=== PATIENT | male | born 1985 | race Caucasian/White ===

== ENCOUNTER 2019-11-03 08:53 | Inpatient (IN) | payer OTHER ==
[2019-11-03] MEDS ORDERED: FOLIC ACID INJ 1 MG, THIAMINE INJ 100 MG, MAGNESIUM SULFATE 2 GM, MULTIVITAMIN 10 ML in... IV STA ×5 (09:23)
[2019-11-03] MEDS ORDERED: LORazepam 2 MG/ML VIAL IVP STA (09:23)
[2019-11-03] MEDS ORDERED: DEXAMETHASONE 10 MG/ML VIAL IVP STA (09:24)
--- NOTE | 2019-11-03 09:26 | ED Physician Documentation ---
History of Present Illness - Stated complaint Stated Complaint: LEGS SWELLING - Chief complaint Chief Complaint: General - History obtained from History obtained from: Patient - History of Present Illness Timing: How many weeks ago (6) - Additonal information Additional information: 34-year-old alcoholic male who admits to drinking 1/2 gallon of whiskey every o ther day.He has not seen a physician in over 10 years. He has previously been treated for hypertension. 2 days ago he decided to quit drinking. He has developed the shakes and elevated blood pressure. He has a rapid heart rate and feels poorly. He is noted some swelling to his ankles bilaterally and this is become concerning to him he is coming to the emergency department for evaluation. He states that he has had some kind of a upper respiratory issue for the past 6 weeks with some shortness of breath and cough. He indicates that he drinks daily heavily and he has prior experience with alcohol withdrawal usually just with the shakes. He denies any prior withdrawal seizure. He has not been without alcohol in the past year. Review of Systems Constitutional: reports: Myalgias, Fatigue. denies: Fever, Chills Eyes: denies: Decreased vision Ears: denies: Ear pain Nose: reports: Congestion. denies: Rhinorrhea / runny nose Throat: denies: Sore throat Cardiac: reports: Pedal edema. denies: Chest pain / pressure, Palpitations Respiratory: reports: Dyspnea, Cough GI: reports: Abdominal Pain, Nausea. denies: Vomiting : denies: Dysuria, Frequency PD PAST MEDICAL HISTORY - Allergies Allergies/Adverse Reactions: Allergies Allergy/AdvReac Type Severity Reaction Status Date / Time Penicillins Allergy Anaphylaxis Verified 11/03/19 09:43 PD ED PE NORMAL - Vitals Vital signs reviewed: Yes (Tachycardic and hypertensive marked.) - General General: Alert and oriented X 3, Well developed/nourished, Other (34-year-old male with shaking and trembling. He is answering questions appropriately. He has no alcohol on his breath.) - HEENT HEENT: Atraumatic, PERRL, EOMI - Neck Neck: Supple, no meningeal sign, No bony TTP - Cardiac Cardiac: No murmur, Other (Tachycardic to 130) - Respiratory Respiratory: No respiratory distress, Clear bilaterally - Abdomen Abdomen: Normal bowel sounds, Soft, Non tender, Non distended, No organomegaly - Back Back: No CVA TTP, No spinal TTP - Derm Derm: Normal color, Warm and dry, No rash - Extremities Extremities: No deformity, No edema, Other (There is trace edema bilaterally to the lower extremities.This is symmetric and pitting.) - Neuro Neuro: Alert and oriented X 3, 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, No motor deficit, No sensory deficit, Normal speech Eye Opening: Spontaneous Motor: Obeys Commands Verbal: Oriented GCS Score: 15 - Psych Psych: Normal mood, Normal affect Results - Vitals Vitals: Vital Signs - 24 hr 11/03/19 11/03/19 11/03/19 09:05 10:11 12:43 Temperature 36.8 C 37.1 C Heart Rate 130 H 117 H 124 H Respiratory 18 22 24 Rate Blood Pressure 158/111 H 147/96 H 163/99 H O2 Saturation 99 95 96 Oxygen O2 Source Room air - EKG (time done) 0928 Rate: Rate (enter#) (125) Rhythm: LAE Intervals: Prolonged QT, LBBB Compare to prior EKG: Old EKG unavailable Computer interpretation: Agree with computer - Labs Labs: Laboratory Tests 11/03/19 11/03/19 11/03/19 09:30 09:30 09:30 WBC 9.2 RBC 4.10 L Hgb 13.6 L Hct 39.8 L MCV 97.1 H MCH 33.2 H MCHC 34.2 RDW 13.2 Plt Count 247 MPV 10.1 Neut # (Auto) 6.9 H Lymph # (Auto) 1.1 L [place] # (Auto) 1.1 H Eos # (Auto) 0.1 Baso # (Auto) 0.1 Absolute Nucleated RBC 0.00 Nucleated RBC % 0.0 PT 16.0 H INR 1.4 H Sodium 131 L Potassium 3.3 L Chloride 93 L Carbon Dioxide 22 Anion Gap 16.0 H BUN 8 Creatinine 0.7 Estimated GFR (MDRD) 128 Glucose 100 Lactic Acid Calcium 8.2 L Total Bilirubin 3.2 H AST 155 H ALT 158 H Alkaline Phosphatase 201 H Total Creatine Kinase 505 H CK-MB (CK-2) Troponin I High Sens B-Natriuretic Peptide Total Protein 7.8 Albumin 3.3 Globulin 4.5 H Albumin/Globulin Ratio 0.7 L Lipase 35 Urine Color Urine Clarity Urine pH Ur Specific [place] Urine Protein Urine Glucose (UA) Urine Ketones Urine Occult Blood Urine Nitrite Urine Bilirubin Urine Urobilinogen Ur Leukocyte Esterase Urine RBC Urine WBC Ur Squamous Epith Cells Urine Bacteria Ur Microscopic Review Urine Culture Comments Urine Opiates Screen Ur Oxycodone Screen Urine Methadone Screen Ur Propoxyphene Screen Ur Barbiturates Screen Ur Tricyclics Screen Ur Phencyclidine Scrn Ur Amphetamine Screen U Methamphetamines Scrn U Benzodiazepines Scrn Urine Cocaine Screen U Cannabinoids Screen Ethyl Alcohol < 5.0 11/03/19 11/03/19 11/03/19 09:30 09:30 09:30 WBC RBC Hgb Hct MCV MCH MCHC RDW Plt Count MPV Neut # (Auto) Lymph # (Auto) [place] # (Auto) Eos # (Auto) Baso # (Auto) Absolute Nucleated RBC Nucleated RBC % PT INR Sodium Potassium Chloride Carbon Dioxide Anion Gap BUN Creatinine Estimated GFR (MDRD) Glucose Lactic Acid Calcium Total Bilirubin AST ALT Alkaline Phosphatase Total Creatine Kinase CK-MB (CK-2) 14.2 H Troponin I High Sens 74.8 H* B-Natriuretic Peptide 1726 H Total Protein Albumin Globulin Albumin/Globulin Ratio Lipase Urine Color Urine Clarity Urine pH Ur Specific [place] Urine Protein Urine Glucose (UA) Urine Ketones Urine Occult Blood Urine Nitrite Urine Bilirubin Urine Urobilinogen Ur Leukocyte Esterase Urine RBC Urine WBC Ur Squamous Epith Cells Urine Bacteria Ur Microscopic Review Urine Culture Comments Urine Opiates Screen Ur Oxycodone Screen Urine Methadone Screen Ur Propoxyphene Screen Ur Barbiturates Screen Ur Tricyclics Screen Ur Phencyclidine Scrn Ur Amphetamine Screen U Methamphetamines Scrn U Benzodiazepines Scrn Urine Cocaine Screen U Cannabinoids Screen Ethyl Alcohol 11/03/19 11/03/19 11/03/19 09:50 10:47 11:30 WBC RBC Hgb Hct MCV MCH MCHC RDW Plt Count MPV Neut # (Auto) Lymph # (Auto) [place] # (Auto) Eos # (Auto) Baso # (Auto) Absolute Nucleated RBC Nucleated RBC % PT INR Sodium Potassium Chloride Carbon Dioxide Anion Gap BUN Creatinine Estimated GFR (MDRD) Glucose Lactic Acid 1.3 Calcium Total Bilirubin AST ALT Alkaline Phosphatase Total Creatine Kinase CK-MB (CK-2) Troponin I High Sens 81.5 H* B-Natriuretic Peptide Total Protein Albumin Globulin Albumin/Globulin Ratio Lipase Urine Color DARK YELLOW Urine Clarity CLEAR Urine pH 6.0 Ur Specific [place] 1.010 Urine Protein 100 H Urine Glucose (UA) NEGATIVE Urine Ketones 15 H Urine Occult Blood MODERATE H Urine Nitrite NEGATIVE Urine Bilirubin NEGATIVE Urine Urobilinogen >=8.0 H Ur Leukocyte Esterase NEGATIVE Urine RBC 0-5 Urine WBC 0-3 Ur Squamous Epith Cells RARE Squamous Urine Bacteria Rare Ur Microscopic Review INDICATED Urine Culture Comments NOT INDICATED Urine Opiates Screen NEGATIVE Ur Oxycodone Screen NEGATIVE Urine Methadone Screen NEGATIVE Ur Propoxyphene Screen NEGATIVE Ur Barbiturates Screen NEGATIVE Ur Tricyclics Screen NEGATIVE Ur Phencyclidine Scrn NEGATIVE Ur Amphetamine Screen NEGATIVE U Methamphetamines Scrn NEGATIVE U Benzodiazepines Scrn NEGATIVE Urine Cocaine Screen NEGATIVE U Cannabinoids Screen NEGATIVE Ethyl Alcohol - Rads (name of study) chest Radiology: Prelim report reviewed (Impression: 1. Moderate cardiomegaly. 2 Bilateral interstitial pulmonary opacities could reflect pulmonary edema.), EMP read indepedently, See rad report Procedures - IVC sono (time) 0920 Bedside IVC sono: IVC measures (cm) ( 2.41), IVC collapsed c insp (cm) (2.01), High CVP PD MEDICAL DECISION MAKING - ED course Complexity details: reviewed results, re-evaluated patient, considered differential, d/w patient ED course: 34-year-old male with no prior history has a significant alcohol history and is in withdrawal now with marked elevation in his blood pressure and pulse and evidence of fluid retention presumed secondary to untreated hypertension/withdrawal. He is administered IV ativan as well as a banana bag and decadron. On my evaluation the patient has cardiomegaly, pulmonary edema, and elevated BNP consistent with acute failure. He has a mildly elevated troponin. He has elevation in all of his liver functions bilirubin is 3.2 INR is mildly elevated. He will need treatment for withdrawal from alcohol and acute congestive heart failure. He is treated here in the emergency department with a banana bag followed by Lasix. Departure - Departure Disposition: 66 [facility] DC/Xfer Clinical Impression: Alcoholic hepatitis Qualifiers: Ascites presence: unspecified Qualified Code(s): K70.10 - Alcoholic hepatitis without ascites Congestive heart failure Qualifiers: Heart failure type: unspecified Heart failure chronicity: acute Qualified Code(s): I50.9 - Heart failure, unspecified Alcohol withdrawal Qualifiers: Complication of substance-induced condition: uncomplicated Qualified Code(s): F10.230 - Alcohol dependence with withdrawal, uncomplicated Condition: Stable
[2019-11-03] MEDS ORDERED: THIAMINE 100 MG/1 ML 2 ML MDV ONE (09:35)
[2019-11-03 09:43] LABS: BASOPHILS # (AUTO) 0.1 10^3/uL (0.0-0.1); BASOPHILS % (AUTO) 0.6 %; EOSINOPHILS # (AUTO) 0.1 10^3/uL (0.0-0.7); EOSINOPHILS % (AUTO) 0.5 %; HGB - HEMOGLOBIN 13.6 g/dL (14.0-18.0); LYMPHOCYTES # (AUTO) 1.1 10^3/uL (1.5-3.5); LYMPHOCYTES % (AUTO) 11.7 %; MEAN CORPUSCULAR HEMOGLOBIN 33.2 pg (27.0-31.0); MEAN CORPUSCULAR HGB CONC 34.2 g/dL (32.0-36.0); MEAN CORPUSCULAR VOLUME 97.1 fL (80.0-94.0); MEAN PLATELET VOLUME 10.1 fL (7.4-11.4); MONOCYTES # (AUTO) 1.1 10^3/uL (0.0-1.0); MONOCYTES % (AUTO) 12.1 %; NEUTROPHILS # (AUTO) 6.9 10^3/uL (1.5-6.6); NEUTROPHILS % (AUTO) 74.6 %; PLT - PLATELET COUNT 247 10^3/uL (130-450); RED CELL DISTRIBUTION WIDTH 13.2 % (12.0-15.0); WHITE BLOOD COUNT 9.2 x10^3/uL (4.8-10.8)
[2019-11-03 09:49] LABS: INR 1.4 (0.8-1.2)
[2019-11-03 10:00] LABS: ALBUMIN 3.3 g/dL (3.2-5.5); ALBUMIN/GLOBULIN RATIO 0.7 (1.0-2.2); ALKALINE PHOSPHATASE 201 IU/L (42-121); ALT ALANINE AMINOTRANSFERASE 158 IU/L (10-60); AST ASPARTATE AMINOTRANSFERASE 155 IU/L (10-42); BILIRUBIN,TOTAL 3.2 mg/dL (0.2-1.0); BUN - BLOOD UREA NITROGEN 8 mg/dL (6-20); CALCIUM 8.2 mg/dL (8.5-10.3); CARBON DIOXIDE - CO2 22 mmol/L (21-32); CHLORIDE 93 mmol/L (101-111); CK- CREATINE KINASE 505 IU/L (22-269); CREATININE 0.7 mg/dL (0.6-1.2); GFR - MDRD 128 (>89); GLUCOSE 100 mg/dL (70-100); LIPASE 35 U/L (22-51); SODIUM 131 mmol/L (135-145); TOTAL PROTEIN 7.8 g/dL (6.7-8.2)
--- NOTE | 2019-11-03 10:09 | XRAY Report ---
Reason: chest pain Procedure Date: 11/03/2019 Accession Number: [id number] / [id number] Procedure: XR - Chest 1 View X-Ray CPT Code: 12150 Final Report FULL RESULT: EXAM: CHEST RADIOGRAPHY EXAM DATE: 11/03/2019 09:43 AM. CLINICAL HISTORY: Chest pain. COMPARISON: None. TECHNIQUE: 1 view. FINDINGS: Lungs/Pleura: Interstitial pulmonary opacities could reflect pulmonary edema. No dense focal consolidation. No evidence for pleural effusion or pneumothorax. Mediastinum: Moderate Cardiomegaly noted. Other: None. IMPRESSION: 1. Moderate cardiomegaly. 2. Bilateral interstitial pulmonary opacities could reflect pulmonary edema. RADIA
[2019-11-03] MEDS ORDERED: FUROSEMIDE 40 MG/4 ML VIAL IVP STA (10:20)
[2019-11-03 11:03] LABS: MUDS CUTOFF CONCENTRATIONS CUTOFF CONC BELOW:
[2019-11-03 11:07] LABS: GLUCOSE, URINE (UA) NEGATIVE (NEGATIVE); KETONES,URINE (UA) 15 mg/dL (NEGATIVE); LEUKOCYTE ESTERASE, URINE NEGATIVE (NEGATIVE); NITRITE,URINE NEGATIVE (NEGATIVE); OCCULT BLOOD,URINE MODERATE (NEGATIVE); PROTEIN,URINE 100 mg/dL (NEGATIVE); UROBILINOGEN,URINE >=8.0 E.U./dL (NORMAL)
[2019-11-03 11:20] LABS: AMPHETAMINE SCREEN,URINE NEGATIVE (NEGATIVE); BENZODIAZEPINES SCREEN, URINE NEGATIVE (NEGATIVE); BILIRUBIN,URINE NEGATIVE (NEGATIVE); CLARITY,URINE CLEAR (CLEAR); COCAINE SCREEN URINE NEGATIVE (NEGATIVE); ICTOTEST,URINE NEGATIVE; METHADONE SCREEN, URINE NEGATIVE (NEGATIVE); METHAMPHETAMINES SCREEN, URINE NEGATIVE (NEGATIVE); OPIATE SCREEN, URINE NEGATIVE (NEGATIVE); OXYCODONE SCREEN, URINE NEGATIVE (NEGATIVE); PROPOXYPHENE SCREEN, URINE NEGATIVE (NEGATIVE); TRICYCLIC ANTIDEPRESSANT,URINE NEGATIVE (NEGATIVE)
[2019-11-03 11:36] LABS: BACTERIA,URINE Rare /HPF (None Seen); RBC,URINE 0-5 /HPF (0-5); SQUAMOUS EPITHELIAL CELL,UR RARE Squamous (<= Few)
[2019-11-03] MEDS ORDERED: oxyCODONE 5 MG TABLET PO PRN (13:51)
[2019-11-03] MEDS ORDERED: ONDANSETRON 4 MG/2 ML VIAL IVP PRN (13:51)
[2019-11-03] MEDS ORDERED: ONDANSETRON ODT 4 MG TABLET TL PRN (13:51)
[2019-11-03] MEDS ORDERED: LORazepam 2 MG/ML VIAL IVP PRN (13:55)
[2019-11-03] MEDS ORDERED: MAGNESIUM SULFATE 2 GRAM 2 GM/50 ML BAG IV ONE ×2 (13:55→16:00)
[2019-11-03 14:33] LABS: INR 1.4 (0.8-1.2); PT - PROTHROMBIN TIME 15.8 secs (9.9-12.6)
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
[2019-11-03] MEDS: SODIUM CHLORIDE FLUSH 0.9% 10 ML SYRINGE IVP SCH (16:36)
[2019-11-03] MEDS ORDERED: POTASSIUM CHLORIDE 20 MEQ TABLET PO ONE (19:24)
[2019-11-03] MEDS: SPIRONOLACTONE 25 MG TABLET PO SCH (19:37)
[2019-11-03] MEDS: FUROSEMIDE 40 MG/4 ML VIAL IVP SCH (19:37)
[2019-11-03] MEDS: METOPROLOL SUCCINATE 50 MG TABLET PO SCH (19:37)
[2019-11-03] MEDS ORDERED: ZOLPIDEM 5 MG TABLET PO PRN (22:35)
[2019-11-03] MEDS: LORazepam 2 MG/ML VIAL IVP SCH (22:52)
[2019-11-03] MEDS: NICOTINE 14 MG PATCH TOP SCH (22:52)
[2019-11-04] MEDS: SODIUM CHLORIDE FLUSH 0.9% 10 ML SYRINGE IVP SCH ×4 (00:59→23:59)
[2019-11-04] MEDS: SODIUM CHLORIDE FLUSH 0.9% 10 ML SYRINGE IVP PRN ×3 (03:03→13:47)
[2019-11-04] MEDS: LORazepam 2 MG/ML VIAL IVP SCH ×3 (03:03→11:17)
[2019-11-04 05:37] LABS: HGB - HEMOGLOBIN 13.3 g/dL (14.0-18.0); LYMPHOCYTES # (AUTO) 0.6 10^3/uL (1.5-3.5); LYMPHOCYTES % (AUTO) 9.2 %; MEAN CORPUSCULAR HEMOGLOBIN 31.7 pg (27.0-31.0); MEAN CORPUSCULAR HGB CONC 32.7 g/dL (32.0-36.0); MEAN CORPUSCULAR VOLUME 97.1 fL (80.0-94.0); MEAN PLATELET VOLUME 9.9 fL (7.4-11.4); MONOCYTES # (AUTO) 0.5 10^3/uL (0.0-1.0); MONOCYTES % (AUTO) 8.2 %; NEUTROPHILS # (AUTO) 5.1 10^3/uL (1.5-6.6); NEUTROPHILS % (AUTO) 81.8 %; PLT - PLATELET COUNT 227 10^3/uL (130-450); RED BLOOD COUNT 4.19 10^6/uL (4.70-6.10); RED CELL DISTRIBUTION WIDTH 13.3 % (12.0-15.0); WHITE BLOOD COUNT 6.2 x10^3/uL (4.8-10.8)
[2019-11-04 05:52] LABS: ALBUMIN 2.4 g/dL (3.2-5.5); ALBUMIN/GLOBULIN RATIO 0.6 (1.0-2.2); CALCIUM 7.8 mg/dL (8.5-10.3); CREATININE 0.7 mg/dL (0.6-1.2); MAGNESIUM 1.8 mg/dL (1.7-2.8); TOTAL PROTEIN 6.1 g/dL (6.7-8.2)
[2019-11-04] MEDS: FUROSEMIDE 40 MG/4 ML VIAL IVP SCH ×2 (06:35→13:47)
[2019-11-04 07:20] LABS: HB2 TOTAL 13.6 g/dL; HEMOGLOBIN A1C 0.48 g/dL; HEMOGLOBIN A1C % 5.4 % (4.6-6.2)
--- NOTE | 2019-11-04 08:25 | Ultrasound Report ---
Reason: abnml lft and bun/creat Procedure Date: 11/04/2019 Accession Number: [id number] / [id number] Procedure: US - Abdomen Complete CPT Code: Final Report FULL RESULT: EXAM: ABDOMEN ULTRASOUND EXAM DATE: 11/04/2019 07:50 AM. CLINICAL HISTORY: Abdominal pain, abnormal liver function testing. COMPARISON: None. TECHNIQUE: Real-time scanning was performed with static images obtained. FINDINGS: Liver: Nodular hepatic contour. No focal hepatic lesions are seen. Main portal vein flow: Hepatopetal. Gallbladder: There are no stones. There is some focal fundal gallbladder wall thickening. There is ring down artifact from cholesterol polyp within the anterior gallbladder wall. Biliary System: Common bile duct measures 4 mm. No intrahepatic or extrahepatic ductal dilatation. Pancreas: The pancreas is not well seen. Kidneys: Right: 12.8 cm longitudinally. No contour-deforming mass, stones, or hydronephrosis. Left: 12.0 cm longitudinally. No contour-deforming mass, stones, or hydronephrosis. Spleen: 11.7 cm. Normal in size and echotexture. Aorta and Inferior Vena Cava: Unremarkable. Other: There is small ascites. IMPRESSION: 1. Nodular hepatic contour. Small ascites. Findings are suspicious for cirrhosis and sequela of portal hypertension. 2. No focal hepatic lesions are seen. 3. There is mild thickening of the gallbladder wall. There is ring-down artifact within the anterior gallbladder wall. Differential considerations for the wall thickening include adenomyomatosis and/or edema secondary to underlying liver disease. There is no sonographic evidence of cholecystitis. 4. There is no intra-or extrahepatic bile duct dilatation. 5. The kidneys demonstrate no shadowing stones or hydronephrosis. RADIA
[2019-11-04] MEDS ORDERED: MULTIVITAMIN 10 ML, THIAMINE INJ 100 MG, FOLIC ACID INJ 1 MG in SODIUM CHLORIDE 0.9% 1,... IV SCH (09:00)
[2019-11-04] MEDS: METOPROLOL SUCCINATE 50 MG TABLET PO SCH ×2 (09:44→17:04)
[2019-11-04] MEDS: THIAMINE 100 MG TABLET PO SCH (09:44)
[2019-11-04] MEDS: FOLIC ACID 1 MG TABLET PO SCH (09:44)
[2019-11-04] MEDS: SPIRONOLACTONE 25 MG TABLET PO SCH ×2 (09:45→17:05)
[2019-11-04] MEDS: MULTIVITAMIN TABLET PO SCH (09:45)
[2019-11-04] MEDS: lisinopriL 5 MG TABLET PO SCH (09:45)
[2019-11-04] MEDS: NICOTINE 14 MG PATCH TOP SCH (09:47)
[2019-11-04] MEDS: polyethylene glycoL 3350 17 GM PACKET PO SCH (09:49)
--- NOTE | 2019-11-04 10:03 | PHARMACY PROGRESS NOTE ---
- Best Possible Medication History Admit Date and Time: 11/03/19 6964 Processed by: Pharmacy Medication History completed: Yes Patient Interview: Completed (Patient reports he is no medications at home, does not have a PCP, has not seen provider for almost a decade; External med hx report was run to see any history of rx fill outpatient, yielded no medication fill hx; no documented PCP on file) Secondary Source(s): Insurance records As the person ultimately responsible for medication therapy, providers are able to order a medication from an existing home medication list in [facility] via the "Reconcile Routine" prior to Confirmation of that medication by system support administrator. Such practice is discouraged except when the physician, in their clinical judgment, deems that a medical need exists for a medication without regard to previous use.
[2019-11-04] MEDS ORDERED: LORazepam 1 MG TABLET PO PRN (11:43)
[2019-11-04] MEDS: PANTOPRAZOLE 40 MG TABLET PO SCH ×2 (13:47→20:27)
--- NOTE | 2019-11-04 16:24 | PROVIDER PROGRESS NOTE ---
Subjective - Prog Note Date Prog Note Date: 11/04/19 Prog Note Time: 16:22 - Subjective Pt reports feeling: Improved Subjective: Felipe has no new symptoms and has had a resolution of his shortness of breath. He was found ambulating in the halls when a friend was visiting. He continues with a dry cough. He has tolerated his meals today. He has been provided with several teaching packets on new medications, CHFrEF and was introduced to the idea of outpatient cardiac rehab, which he states he will have to think about. He admits to good social support at home, as several of his family members and friends are worried about him. He feels comfortable telling them about his medical condition. Current Medications - Current Medications Current Medications: Active Medications: Folic Acid 1 mg PO DAILY [place] Furosemide (Lasix Inj 40 Mg Vial) 40 mg IVP BIDDIURETIC [place] Lisinopril (Zestril) 5 mg PO DAILY [place] Lorazepam (Ativan Inj (Vial)) 2 mg IVP Q30M PRN; Protocol Lorazepam (Ativan) 2 mg PO Q4H PRN Metoprolol Succinate (Toprol Xl) 75 mg PO BIDWM [place] Multivitamins (Theragran) 1 tab PO DAILYWM [place] Nicotine (Nicoderm) 1 patch TOP DAILY [place] Ondansetron HCl (Zofran Inj) 4 mg IVP Q6HR PRN Ondansetron HCl (Zofran) 4 mg TL Q6HR PRN Oxycodone HCl (Roxicodone) 5 mg PO Q4HR PRN Pantoprazole Sodium (Protonix) 40 mg PO BID [place] Polyethylene Glycol (Miralax) 17 gm PO DAILY [place] Spironolactone (Aldactone) 25 mg PO BIDWM [place] Thiamine HCl (Vitamin B-1) 100 mg PO DAILY [place] Zolpidem Tartrate (Ambien) 5 mg PO QPM PRN No Known Home Medications 11/04/19 Objective - Vital Signs/Intake & Output Reviewed Vital Signs: Yes Vital Signs: Vital Signs x48h Temp Pulse Resp BP Pulse Ox 11/04/19 15:57 36.8 C 102 H 20 126/66 99 11/04/19 11:11 36.5 C 113 H 20 128/80 100 Intake & Output: Intake & Output 11/01/19 11/02/19 11/03/19 11/04/19 23:59 23:59 23:59 23:59 Intake Total 1605.2 790 Output Total 0970 4200 Balance -764.8 -3410 - Objective General Appearance: positive: No acute distress, Alert Eyes Bilateral: positive: No lid inflammation, No scleral icterus (resolved since admission) Eyes: OU Conjunctivae pale ENT: positive: Pharyngeal erythema, Dry mucous membranes, Other (poor dentitian to lower teeth Flushed facial features) Neck: positive: No JVD, Trachea midline Respiratory: positive: Chest non-tender, No respiratory distress, Breath sounds nml, Other (diminished bilaterally, no crackles or wheezing) Cardiovascular: positive: Regular rate & rhythm, Tachycardia, JVD present (slight), Systolic murmur, Diastolic murmur, Gallop/S3, Decreased pulse(s) Peripheral Pulses: 1+ Radial (R), 1+ Radial (L) Abdomen: positive: Non-tender, Nml bowel sounds, Hepatomegaly Back: positive: Nml inspection Skin: positive: No rash, Warm, Dry, Other (evidence of poor circulation to per iphery, sluggish capillary refill) Extremities: positive: Non-tender, Full ROM, Pedal edema, Joint swelling, Other (BLE pitting edema, +1) Neurologic/Psychiatric: positive: Oriented x3, CN's nml (2-12), Motor nml, Sensation nml, Mood/affect nml Reflexes: Bicep (R): 3+, Bicep (L): 3+ - Lab Results Fish Bones: 11/04/19 05:10 11/04/19 05:10 Other Labs: Lab Results x24hrs 11/04/19 11/04/19 11/04/19 Range/Units 05:10 05:10 05:10 WBC (4.8-10.8) x10^3/uL RBC (4.70-6.10) 10^6/uL Hgb (14.0-18.0) g/dL Hct (42.0-52.0) % MCV (80.0-94.0) fL MCH (27.0-31.0) pg MCHC (32.0-36.0) g/dL RDW (12.0-15.0) % Plt Count (130-450) 10^3/uL MPV (7.4-11.4) fL Neut # (Auto) (1.5-6.6) 10^3/uL Lymph # (Auto) (1.5-3.5) 10^3/uL [place] # (Auto) (0.0-1.0) 10^3/uL Eos # (Auto) (0.0-0.7) 10^3/uL Baso # (Auto) (0.0-0.1) 10^3/uL Absolute Nucleated RBC x10^3/uL Nucleated RBC % /100WBC Sodium (135-145) mmol/L Potassium (3.5-5.0) mmol/L Chloride (101-111) mmol/L Carbon Dioxide (21-32) mmol/L Anion Gap (6-13) BUN (6-20) mg/dL Creatinine (0.6-1.2) mg/dL Estimated GFR (MDRD) (>89) Glucose (70-100) mg/dL Glycated Hemoglobin 5.4 (4.6-6.2) % Estim Average Glucose 108 H (70-100) Calcium (8.5-10.3) mg/dL Phosphorus (2.5-4.6) mg/dL Magnesium (1.7-2.8) mg/dL Total Bilirubin (0.2-1.0) mg/dL GGT (8-55) IU/L AST (10-42) IU/L ALT (10-60) IU/L Alkaline Phosphatase (42-121) IU/L Total Creatine Kinase (22-269) IU/L CK-MB (CK-2) 6.1 (0.6-6.3) ng/mL Total Protein (6.7-8.2) g/dL Albumin (3.2-5.5) g/dL Globulin (2.1-4.2) g/dL Albumin/Globulin Ratio (1.0-2.2) TSH 1.19 (0.34-5.60) uIU/mL 11/04/19 11/04/19 Range/Units 05:10 05:10 WBC 6.2 (4.8-10.8) x10^3/uL RBC 4.19 L (4.70-6.10) 10^6/uL Hgb 13.3 L (14.0-18.0) g/dL Hct 40.7 L (42.0-52.0) % MCV 97.1 H (80.0-94.0) fL MCH 31.7 H (27.0-31.0) pg MCHC 32.7 (32.0-36.0) g/dL RDW 13.3 (12.0-15.0) % Plt Count 227 (130-450) 10^3/uL MPV 9.9 (7.4-11.4) fL Neut # (Auto) 5.1 (1.5-6.6) 10^3/uL Lymph # (Auto) 0.6 L (1.5-3.5) 10^3/uL [place] # (Auto) 0.5 (0.0-1.0) 10^3/uL Eos # (Auto) 0.0 (0.0-0.7) 10^3/uL Baso # (Auto) 0.0 (0.0-0.1) 10^3/uL Absolute Nucleated RBC 0.00 x10^3/uL Nucleated RBC % 0.0 /100WBC Sodium 134 L (135-145) mmol/L Potassium 3.8 (3.5-5.0) mmol/L Chloride 95 L (101-111) mmol/L Carbon Dioxide 26 (21-32) mmol/L Anion Gap 13.0 (6-13) BUN 10 (6-20) mg/dL Creatinine 0.7 (0.6-1.2) mg/dL Estimated GFR (MDRD) 128 (>89) Glucose 115 H (70-100) mg/dL Glycated Hemoglobin (4.6-6.2) % Estim Average Glucose (70-100) Calcium 7.8 L (8.5-10.3) mg/dL Phosphorus 3.0 (2.5-4.6) mg/dL Magnesium 1.8 (1.7-2.8) mg/dL Total Bilirubin 2.0 H (0.2-1.0) mg/dL GGT 260 H (8-55) IU/L AST 74 H (10-42) IU/L ALT 94 H (10-60) IU/L Alkaline Phosphatase 145 H (42-121) IU/L Total Creatine Kinase 234 (22-269) IU/L CK-MB (CK-2) (0.6-6.3) ng/mL Total Protein 6.1 L (6.7-8.2) g/dL Albumin 2.4 L (3.2-5.5) g/dL Globulin 3.7 (2.1-4.2) g/dL Albumin/Globulin Ratio 0.6 L (1.0-2.2) TSH (0.34-5.60) uIU/mL - Diagnostic Imaging Diagnostic Imaging Results: positive: Final report reviewed Diagnostic Imaging Comments: EXAM: ABDOMEN ULTRASOUND 11/04/2019 07:50 AM IMPRESSION: 1. Nodular hepatic contour. Small ascites. Findings are suspicious for cirrhosis and sequela of portal hypertension. 2. No focal hepatic lesions are seen. 3. There is mild thickening of the gallbladder wall. There is ring-down artifact within the anterior gallbladder wall. Differential considerations for the wall thickening include adenomyomatosis and/or edema secondary to underlying liver disease. There is no sonographic evidence of cholecystitis. 4. There is no intra-or extrahepatic bile duct dilatation. 5. The kidneys demonstrate no shadowing stones or hydronephrosis. ABX Reporting Has patient been on IV antibiotics over the past 48 hours?: No Assessment/Plan - Problem List (1) Alcohol withdrawal Impression: -Last drink of whiskey was on Thursday night (11/01/2019) -Symptoms on admit include, HTN, tachycardia, tremors, nausea, diaphoresis, and anxiety -Last attempt at quitting was about 1 year ago, no seizures -Social work consult -[facility] nurse scoring today from 1-4 -Continues on scheduled Lorazepam Q4H -Starting Librium in the AM to continue at home -[facility] protocol, echocardiogram, telemetry, monitor and treat symptoms Alcoholic cardiomyopathy -Echo shows severely global hypokinesis, reduced EF of 25-30% Acute combined systolic (congestive) and diastolic (congestive) heart failure -Echo shows severe global hypokinesis, reduced EF of 25-30%, severely dilated LA -Pulmonary HTN, RVSP at rest of 56 mmHg -Lifelong alcoholism is the cause -Shortness of breath with activity is nearly resolved -Ongoing fatigue, orthopnea, BLE pitting edema, enlarged abdominal girth, S3 gallop, +murmur -Continues on medical guided therapy of metoprolol, Lisinopril, spironolactone, and IV lasix Elevated LFTs -total bilirubin 3.2, now down to 2.0 -AST 155, now down to 74 -ALT 158, now down to 94 -Alk phos 201, now down to 145 -Total CK & CK-MB both have normalized -Slight yellowing of bilateral sclera has resolved -Sparkling eyes today -No jaundice -Strict cessation of alcohol use is strongly recommended Liver cirrhosis -US of the abdomen today showed nodular hepatic contour, small ascites, suspicious for cirrhosis and sequela of portal hypertension; no focal hepatic lesions are seen -Enlarged abdominal girth, lack of recent medical care -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 -Continue spironolactone, treat heart failure, encourage cessation Resting tremor -Noted on exam, patient states he does not notice this on his usual days -Patient denies baseline tremors, on his daily routine -Likely a consequence of not using alcohol -Treat symptoms; continue with CIWA protocol per nursing Medical non-compliance -Known HTN, patient admitted to not picking up antihypertensives -No PCP, substance abuse, psych diagnoses -Recommend cessation and intensive I/P treatment after this acute phase of WD Alcoholism, chronic -Primarily drinks hard liquor of whiskey -Admits to at least 1/2 gallon every 1-2 days -Elevated GGT of 260 confirms recent, heavy drinking -States that he feels that he is a "functional alcoholic as he does not drink upon waking up in the morning, and also does not drink throughout the day -Both his mother and father have been alcoholics, father has already at age 47 from complications of his alcohol abuse -Today, the patient admits to forming a habit of drinking and denies using drinking as a coping mechanism -Highly recommend intensive inpatient dual diagnosis treatment I/P center after this hospital stay -Social work has already seen the patient and we thank them for their assistance with this endeavor Social withdrawal -Patient notes that he does not do well in large groups -Initially, he has refused any treatment centers due to his social difficulties -Presented cardiac rehab today, but patient states he will have to think about this Essential hypertension -Blood pressures today have improved; 126/66, heart rates 100-110s -Continues on medical guided HFrEF therapy with metoprolol, ELIZABETH, spironolactone, and IV Lasix -Beta yfn adjusted from 50 mg to 75 mg BID today for continued tachycardia -Continue telemetry, monitor VS, adjust medications as appropriate Anxiety and depression -No regular psychotherapist per patient, no prescribed antidepressants -Continues on scheduled Lorazepam PO to keep tremors controlled and prevent full withdrawal from alcohol -Recommend ongoing counseling/treatment after this hospital stay to ensure alcohol cessation -Starting on Librium in the AM, stopping Lorazepam as well PTSD (post-traumatic stress disorder) -Patient notes childhood trauma related to growing up in a home with alcoholics as parents -Today, he claims, everyone in [place] has had abuse growing up -Consequently has social anxiety, isolation, and claims, "I am a private person" as his rationale for not needing further treatment for his alcohol use Tobacco dependence -Patient admits to vaping nicotine several times daily -Nicotine patch while inpatient, patient is thankful - No attempts have been made to leave the hospital today Insomnia -Patient admits to detention issues with his sleep, which is common in those with substance abuse disorders -Patient has been told that his long alcohol use may have contributed to his drinking -Offer Ambien at [facility]:
[2019-11-05 06:20] LABS: BASOPHILS % (AUTO) 0.4 %; EOSINOPHILS # (AUTO) 0.1 10^3/uL (0.0-0.7); EOSINOPHILS % (AUTO) 0.6 %; HGB - HEMOGLOBIN 13.7 g/dL (14.0-18.0); LYMPHOCYTES # (AUTO) 2.3 10^3/uL (1.5-3.5); LYMPHOCYTES % (AUTO) 22.5 %; MEAN CORPUSCULAR HEMOGLOBIN 31.9 pg (27.0-31.0); MEAN CORPUSCULAR HGB CONC 31.7 g/dL (32.0-36.0); MEAN CORPUSCULAR VOLUME 100.7 fL (80.0-94.0); MEAN PLATELET VOLUME 9.8 fL (7.4-11.4); MONOCYTES # (AUTO) 0.9 10^3/uL (0.0-1.0); MONOCYTES % (AUTO) 9.4 %; NEUTROPHILS # (AUTO) 6.6 10^3/uL (1.5-6.6); NEUTROPHILS % (AUTO) 66.4 %; PLT - PLATELET COUNT 276 10^3/uL (130-450); RED BLOOD COUNT 4.29 10^6/uL (4.70-6.10); RED CELL DISTRIBUTION WIDTH 13.7 % (12.0-15.0)
[2019-11-05 06:25] LABS: INR 1.3 (0.8-1.2); PT - PROTHROMBIN TIME 14.6 secs (9.9-12.6)
[2019-11-05 06:35] LABS: ALBUMIN 2.8 g/dL (3.2-5.5); ALBUMIN/GLOBULIN RATIO 0.7 (1.0-2.2); BILIRUBIN,TOTAL 1.7 mg/dL (0.2-1.0); CREATININE 1.1 mg/dL (0.6-1.2); MAGNESIUM 1.6 mg/dL (1.7-2.8); PHOSPHORUS 3.5 mg/dL (2.5-4.6); TOTAL PROTEIN 6.6 g/dL (6.7-8.2)
[2019-11-05 06:50] LABS: CHOLESTEROL 105 mg/dL; HDL CHOLESTEROL 35 mg/dL; LDL CHOLESTEROL,CALCULATED 56 mg/dL; LDL/HDL RATIO 1.6 (<3.6); VLDL CHOLESTEROL 14 mg/dL
[2019-11-05] MEDS ORDERED: MAGNESIUM OXIDE 400 MG TABLET PO SCH (08:00)
[2019-11-05] MEDS ORDERED: FUROSEMIDE 40 MG TABLET PO SCH (08:00)
[2019-11-05] MEDS: PANTOPRAZOLE 40 MG TABLET PO SCH (08:10)
[2019-11-05] MEDS: THIAMINE 100 MG TABLET PO SCH (08:10)
[2019-11-05] MEDS: METOPROLOL SUCCINATE 50 MG TABLET PO SCH (08:11)
[2019-11-05] MEDS: FOLIC ACID 1 MG TABLET PO SCH (08:11)
[2019-11-05] MEDS: lisinopriL 5 MG TABLET PO SCH (08:11)
[2019-11-05] MEDS: SPIRONOLACTONE 25 MG TABLET PO SCH (08:12)
[2019-11-05] MEDS: MULTIVITAMIN TABLET PO SCH (08:12)
--- NOTE | 2019-11-05 08:14 | Discharge Plan ---
Discharge Plan Problem Reviewed?: Yes Disposition: Home, Self Care Condition: Good Prescriptions: Folic Acid 1 mg PO DAILY #30 tablet Furosemide [Lasix] 40 mg PO DAILYWM #30 tablet lisinopriL [Zestril] 5 mg PO DAILY #30 tablet LORazepam [Ativan] 1 mg PO Q6H PRN #25 tablet PRN Reason: Restlessness Magnesium Oxide [Mag Ox] 400 mg PO BIDWM #60 tablet Metoprolol Succinate [Toprol Xl] 100 mg PO BIDWM #60 tab.er.24h Multivitamin [Theragran] 1 tab PO DAILYWM #30 tablet Nicotine 14 mg Patch [Nicoderm] 1 patch TOP DAILY #7 patch Spironolactone [Aldactone] 25 mg PO DAILY #30 tablet Thiamine [Vitamin B-1] 100 mg PO DAILY #30 tablet Diet: Cardiac Activity Restrictions: Activity as Tolerated Shower Restrictions: No Driving Restrictions: No Instruction Topics: Metoprolol tablets, Lisinopril tablets, Furosemide tablets, Spironolactone tablets, Cardiomyopathy Meds, Cardiomyopathy Dc, Foods Heart Healthy, Diet Low Salt Dc Health Concerns: Congestive heart failure with reduced ejection fraction Leg swelling Alcoholism Liver cirrhosis Tremors Plan of Treatment: Continue medications at home to treat your heart failure Make immediate plans to establish care with a primary care provider Your primary care provider will need to make a referral to a Jail [employer] Limit your free water intake to 2.5 liters per day Please limit your caffiene to 1 cup per day Please try the nicotine patches Care Goals: Prevent hospital stays or ED visits Prevent exacerbation of your heart failure STOP drinking for the rest of your life Have routine health care visits Assessment: You were admitted to the hospital for acute congestive heart failure caused by cardiomyopathy (enlarged heart). The most likely factor to the enlarged heart is from years of heavy alcohol use. Your legs were profoundly swollen, which improved with the use of medications to ease the work load of your heart. Imaging of your liver (ultrasound) showed liver cirrhosis and a mild amount of ascites. It is imperative that you avoid any further alcohol use at all costs for the rest of your life. You have not been interested in intensive inpatient alcohol treatment right now. Resources have been provided by our social work team. Please reach out to your family and friends during this time for support. You are medically stable today and free to return home. A call has been made to the primary clinic on [address] and they will be expecting a call from you on Thursday. You will need repeat labs and a new patient visit within one week. Follow-Up Care: [facility] - CHF Classes No Smoking: If you smoke, Please STOP! Call for help.
[2019-11-05] MEDS: NICOTINE 14 MG PATCH TOP SCH (08:15)
[2019-11-05] MEDS: polyethylene glycoL 3350 17 GM PACKET PO SCH (08:16)
[2019-11-05 08:17] VITALS: BP 113/75
--- NOTE | 2019-11-05 11:29 | DISCHARGE SUMMARY ---
"Discharge Summary Admit Date: 11/03/19 Discharge Date: 11/05/19 Discharging Provider: LISSET Ramos Primary Care Provider: NONE Code Status: Attempt Resuscitation Condition at Discharge: Good Discharge Disposition: 01 Home, Self Care - DIAGNOSES Admission Diagnoses: Alcohol withdrawal Leg edema Flu-like symptoms Elevated troponin Alcoholic cardiomyopathy Acute combined systolic (congestive) and diastolic (congestive) heart failure Elevated LFTs Hepatitis, alcoholic Resting tremor Medical non-compliance Alcoholism, chronic Social withdrawal Essential hypertension Anxiety and depression PTSD (post-traumatic stress disorder) Tobacco dependence Insomnia Discharge Diagnoses with Status of Each Condition: Alcohol withdrawal-New on this admission, negative blood alcohol upon admit, baseline tremors, scheduled lorazepam tapered off, stable without significant withdrawal during this stay, remained orientated without encephalopathy Alcoholic cardiomyopathy-New on this admission, consult for [facility]-CHF classes, refusal of Palliative consult, prognosis is fair with a cessation of alcohol use, will need a regular [employer] Acute combined systolic (congestive) and diastolic (congestive) heart failure- New on this admit, EF poor at only 25-30%, severe global hypokinesis Elevated LFTs-Improved, trended down, stable Liver cirrhosis-New diagnosis on this admission, present on admit, stable, recommend no further alcohol use Resting tremor-Baseline, stable Medical ola-lkjvetfxgy-Nqwnzhwwxr cessation Alcoholism, chronic-Patient refused treatment, strong family support, committed to alcohol cessation Social withdrawal-Chronic, may be a barrier to proper treatment Essential hypertension-Chronic, continue lisinopril, metoprolol, spironolactone, and lasix at home Anxiety and depression-Chronic, refused antidepressant, will need follow up outpatient PTSD (post-traumatic stress disorder)--Chronic, refused medications, will need follow up outpatient Tobacco dependence-Encouraged to use nicotine, stable Insomnia-Lorazepam prescribed for anxiety, tremors, and insomnia to be taken at home - HPI History of Present Illness: Caleb Cheng) is a 34-year-old male with a past medical history of untreated hypertension, lifelong alcoholism, tobacco dependence, marijuana use, depression, anxiety, PTSD, medical noncompliance, insomnia, daily nausea, & social withdrawal. The patient was brought in via private car via his [id number] for a primary complaint of bilateral leg swelling that was first noticed yesterday, shortness of breath (worse with activity), body aches, a non- productive cough and flu like symptoms for the past 6 weeks. He admits to drinking 1/2 gallon of whiskey every 1-2 days. He has not seen a physician in over 10 years and currently has no primary care provider. He states that he was first diagnosed with high blood pressure around the same time he last saw a doctor, but did not get around to picking up a prescription. He states that since his legs began to swell, this was the last straw, which is when he decided to quit drinking. He states that his last drink was on Thursday night (less than 48 hours ago). Since arriving in the ED, he has had tachycardia, hypertension, ongoing nausea, moderate to severe tremors without hallucinations or confusion. He denies any prior seizures, when attempting to stop drinking, last attempted 1 year ago. Labs show several abnormalities including; Hgb 13.6, Hct 39.8, MCV 97.1, PT 16.0, INR 1.4, sodium 131, potassium 3.3, anion gap 16.0, total bilirubin 3.2, AST 155, ALT 158, alk phos 201, total CK 505, CK-MB 14.2, troponin 74.8, repeated 81.5, BNP 1726, urine sample showed dark yellow urine, urine protein 100, urine ketones 15, occult blood moderate, urine urobilinogen greater than 8.0, urine drug screen is negative for all substances, negative for alcohol. Upon initial exam, the patient has moderate resting tremor, mildly diaphoretic, is anxious, orientated, pleasant, has +2-3 pitting edema to his BLEs, abdominal girth enlargement, mild scleral icterus, no jaundice, no abnormal bruising, and has no pain. The patient was very vague in his description, but admits to frequent delmi blood in his stool which occurs at least a few times per week. He also notes that he consumes at least 4 liters of water daily as he can never quite quench his thirst. He states that he does not urinate very often. The patient states he agrees to stay in the hospital a few days if needed, and wishes for the medical team to make all efforts in a FULL resuscitation. - CONSULTS | PROCEDURES Consultations: [facility]-CHF classes outpatient - HOSPITAL COURSE Hospital Course: The patient was admitted to the hospital for acute congestive heart failure caused by cardiomyopathy. The most likely factor to the enlarged heart is from years of heavy alcohol use. The patient had profound BLE pitting edema, and an enlarged abdominal girth which improved greatly from aggressive IV lasix & spironolactone which will continue at home. A liver ultrasound showed liver cirrhosis and a mild amount of ascites. The patient was heavily counseled on the importance of avoiding any further alcohol use at all costs for the rest of his life. He declined any resources or facilities while in our care, so social work provided alcohol treatment facilities for his reference. The patient was encouraged to reach out to your family and friends during this time for support. The patient's sister and [id number] were present for discharge teaching who seemed invested and interested in his health/wellness. The patient was medically stable today and is returning home. The patient states he would call on Thursday to [facility] for an appointment. He will need repeat labs and a new patient visit within one week. - ALLERGIES Allergies/Adverse Reactions: Allergies Allergy/AdvReac Type Severity Reaction Status Date / Time Penicillins Allergy Anaphylaxis Verified 11/03/19 09:43 - MEDICATIONS Home Medications: Ambulatory Orders Medication Instructions Recorded Confirmed Folic Acid 1 mg PO DAILY #30 tablet 11/05/19 Furosemide [Lasix] 40 mg PO DAILYWM #30 tablet 11/05/19 LORazepam [Ativan] 1 mg PO Q6H PRN #25 tablet 11/05/19 Magnesium Oxide [Mag Ox] 400 mg PO BIDWM #60 tablet 11/05/19 Metoprolol Succinate [Toprol Xl] 100 mg PO BIDWM #60 tab.er.24h 11/05/19 Multivitamin [Theragran] 1 tab PO DAILYWM #30 tablet 11/05/19 Nicotine 14 mg Patch [Nicoderm] 1 patch TOP DAILY #7 patch 11/05/19 Spironolactone [Aldactone] 25 mg PO DAILY #30 tablet 11/05/19 Thiamine [Vitamin B-1] 100 mg PO DAILY #30 tablet 11/05/19 lisinopriL [Zestril] 5 mg PO DAILY #30 tablet 11/05/19 - PHYSICAL EXAM AT DISCHARGE General Appearance: positive: No acute distress, Alert Eyes Bilateral: positive: Normal inspection, No lid inflammation, No scleral icterus ENT: positive: Pharynx nml, No signs of dehydration Neck: positive: Thyroid nml, No JVD, Trachea midline Respiratory: positive: Chest non-tender, No respiratory distress, Breath sounds nml Cardiovascular: positive: Regular rate & rhythm, No gallop, Systolic murmur Peripheral Pulses: positive: 1+ Abdomen: positive: Non-tender, Nml bowel sounds, Hepatomegaly, Other (obese, soft) Back: positive: Nml inspection Skin: positive: No rash, Warm, Dry, Other (cool extremities, flushed face, pale) Neurologic/Psychiatric: positive: Oriented x3, CN's nml (2-12), Motor nml, Sensation nml, Depressed mood/affect (flat affect, baseline tremors) Reflexes: Bicep (R): 3+, Bicep (L): 3+, Ankle (R): 3+, Ankle (L): 3+ - LABS Result Diagrams: 11/05/19 06:10 11/05/19 06:10 - TIME SPENT Time Spent in Discharge (Minutes): 65"
[2019-11-05 12:54] LABS: HEPATITIS A IGM NON-REACTIVE (NON-REACTIVE); HEPATITIS B SURFACE ANTIGEN NON-REACTIVE (NON-REACTIVE); HEPATITIS C ANTIBODY NON-REACTIVE (NON-REACTIVE)
--- NOTE | 2019-11-08 12:08 | MISCELLANEOUS PROVIDER NOTE ---
Miscellaneous Provider Note - - Note: I spoke with the patient via phone to ensure he had made a follow up appointment with a new PCP. He states that he has no new symptoms since being discharged. He notes that his leg swelling continues to improve, and he has been urinating quite a bit. He states that he will see [facility] at the [facility] this Thursday (11/21/2019) as a follow up to his hospital stay and to establish care as a new patient. LISSET Ramos 11/08/2019 @ 12:09PM
== END 2019-11-05 11:30 | disposition home or self-care (01) | DRG 896 ==
LOC: ED 08:53 → MS2 13:51
PROVIDERS: ADMIT Nurse Practitioner; ATTEND Nurse Practitioner
DX: F10.230 Alcohol dependence with withdrawal, uncomplicated (principal); I50.41 Acute combined systolic (congestive) and diastolic (congestive) heart failure; I42.6 Alcoholic cardiomyopathy; K70.11 Alcoholic hepatitis with ascites; K70.31 Alcoholic cirrhosis of liver with ascites; I27.21 Secondary pulmonary arterial hypertension; I10 Essential (primary) hypertension; T46.5X6A Underdosing of other antihypertensive drugs, initial encounter; Z91.128 Patient's intentional underdosing of medication regimen for other reason; F10.280 Alcohol dependence with alcohol-induced anxiety disorder; F10.282 Alcohol dependence with alcohol-induced sleep disorder; F10.24 Alcohol dependence with alcohol-induced mood disorder; F17.298 Nicotine dependence, other tobacco product, with other nicotine-induced disorders; F12.280 Cannabis dependence with cannabis-induced anxiety disorder; F12.288 Cannabis dependence with other cannabis-induced disorder; F40.10 Social phobia, unspecified; F32.9 Major depressive disorder, single episode, unspecified; F43.12 Post-traumatic stress disorder, chronic; Y90.0 Blood alcohol level of less than 20 mg/100 ml; Z79.899 Other long term (current) drug therapy; Z81.1 Family history of alcohol abuse and dependence
CPT/HCPCS: 36415; 71045; 76700; 80053; 80061; 80074; 80306; 80320; 81001; 82550; 82553; 82977; 83036; 83605; 83690; 83735; 83880; 84100; 84443; 84484; 85025; 85610; 93005; 93306; 96365; 96366; 96375; 99284; 99285; A9270; J2060; J3411; J8499; Q0162; 81003; 83721; 87086

== ENCOUNTER 2019-11-11 13:14 | Outpatient (CLI) | payer OTHER ==
[2019-11-11 18:34] LABS: HGB - HEMOGLOBIN 13.3 g/dL (14.0-18.0); MEAN CORPUSCULAR HEMOGLOBIN 32.6 pg (27.0-31.0); MEAN CORPUSCULAR HGB CONC 32.4 g/dL (32.0-36.0); MEAN CORPUSCULAR VOLUME 100.5 fL (80.0-94.0); MEAN PLATELET VOLUME 10.7 fL (7.4-11.4); RED BLOOD COUNT 4.08 10^6/uL (4.70-6.10); RED CELL DISTRIBUTION WIDTH 13.4 % (12.0-15.0); WHITE BLOOD COUNT 6.8 x10^3/uL (4.8-10.8)
[2019-11-11 18:52] LABS: CALCIUM 9.5 mg/dL (8.5-10.3); CREATININE 1.2 mg/dL (0.6-1.2)
== END 2019-11-11 23:59 | disposition home or self-care (01) ==
LOC: LAB.N 13:14
PROVIDERS: ATTEND Family Medicine
DX: I50.9 Heart failure, unspecified (principal)
CPT/HCPCS: 36415; 80048; 83880; 85027

== ENCOUNTER 2019-11-30 13:50 | Outpatient (CLI) | payer OTHER ==
[2019-11-30 19:00] LABS: CALCIUM 9.5 mg/dL (8.5-10.3); CREATININE 1.2 mg/dL (0.6-1.2)
== END 2019-11-30 23:59 | disposition home or self-care (01) ==
LOC: LAB.N 13:50
PROVIDERS: ATTEND Family Medicine
DX: I50.9 Heart failure, unspecified (principal)
CPT/HCPCS: 36415; 80048; 83880

== ENCOUNTER 2019-12-14 11:55 | Outpatient (CLI) | payer OTHER ==
[2019-12-14 18:52] LABS: ALBUMIN 4.5 g/dL (3.2-5.5); BILIRUBIN,TOTAL 0.8 mg/dL (0.2-1.0); TOTAL PROTEIN 8.8 g/dL (6.7-8.2)
== END 2019-12-14 23:59 | disposition home or self-care (01) ==
LOC: LAB.N 11:55
PROVIDERS: ATTEND Family Medicine
DX: I50.9 Heart failure, unspecified (principal); N18.2 Chronic kidney disease, stage 2 (mild)
CPT/HCPCS: 36415; 80053; 83880